=== PATIENT | male | born 1940 | race Caucasian/White ===

== ENCOUNTER → 2019-04-15 | Outpatient (CLI) | payer MEDICARE | END | disposition home or self-care (01) | LOC: LABWHC1 08:12 | PROVIDERS: ATTEND Internal Medicine | DX: R97.20 Elevated prostate specific antigen [PSA] (principal) | CPT/HCPCS: 36415; 84153 ==

== ENCOUNTER 2020-04-04 08:23 | Emergency (ER) | payer MEDICARE ==
[2020-04-04 08:32] VITALS: RESP 18
--- NOTE | 2020-04-04 08:59 | ED ---
General Adult HPI - General Chief complaint: Extremity Injury, Lower Stated complaint: Pain in right hip Time Seen by Provider: 04/04/20 08:41 Source: patient, RN notes reviewed Mode of arrival: ambulatory Limitations: no limitations - History of Present Illness Initial comments: This is an 79-year-old male presents emergency Department chief complaint of right leg pain. Patient has pain from his right buttocks, right hip region down towards his knee. Patient states started after raking some leaves earlier last week. Patient states that pain is worse after standing all day states it aches at nighttime. Patient denies any numbness or tingling denies any bowel, bladder incontinence or retention, denies any saddle anesthesia or lower extremity paresthesias. Patient has no associated weakness no decreased range of motion. Patient states he gets pain relief while laying flat and put in his legs up. - Related Data Previous Rx's Medication Instructions Recorded Ibuprofen [Motrin] 600 mg PO Q8HR PRN #20 tab 04/04/20 Orphenadrine [Norflex] 100 mg PO Q12H #10 tablet.er 04/04/20 predniSONE 50 mg PO DAILY #5 tab 04/04/20 Allergies Allergy/AdvReac Type Severity Reaction Status Date / Time aspirin AdvReac nose bleed Verified 04/04/20 09:36 Review of Systems ROS Statement: Those systems with pertinent positive or pertinent negative responses have been documented in the HPI. ROS Other: All systems not noted in ROS Statement are negative. Past Medical History Past Medical History: No Reported History History of Any Multi-Drug Resistant Organisms: None Reported Past Surgical History: Hernia Repair Past Psychological History: No Psychological Hx Reported Smoking Status: Former smoker Past Alcohol Use History: Daily General Exam Limitations: no limitations General appearance: alert, in no apparent distress Head exam: Present: atraumatic, normocephalic, normal inspection Eye exam: Present: normal appearance, PERRL, EOMI. Absent: scleral icterus, conjunctival injection, periorbital swelling Neck exam: Present: normal inspection, full ROM. Absent: tenderness, meningismus, lymphadenopathy Respiratory exam: Present: normal lung sounds bilaterally. Absent: respiratory distress, wheezes, rales, rhonchi, stridor Cardiovascular Exam: Present: regular rate, normal rhythm, normal heart sounds. Absent: systolic murmur, diastolic murmur, rubs, gallop, clicks Extremities exam: Present: other (Lower extremity pulses equal bilaterally neurovascular intact equal color equal warmth strength 5/5) Back exam: Present: full ROM. Absent: tenderness, paraspinal tenderness, verteb ral tenderness Neurological exam: Present: alert, oriented X3, CN II-XII intact Skin exam: Present: warm, dry, intact, normal color. Absent: rash Course Vital Signs 04/04/20 04/04/20 08:28 09:43 Temperature 97.9 F 97.8 F Pulse Rate 91 78 Respiratory 18 18 Rate Blood Pressure 187/121 164/110 O2 Sat by Pulse 99 97 Oximetry Medical Decision Making - Medical Decision Making X-ray reviewed shows degenerative changes, arthritic changes. Patient has no red flag symptoms she does have lumbar radiculopathy. Patient provided or steroids, pain control. Patient does have moderate hypertension he states that he goes his PCP on a regular basis has no issues with his blood pressure did recommend treating his blood pressure patient states that he thinks it's from the pain and will follow-up for recheck. Disposition Clinical Impression: Lumbar radiculopathy, acute Disposition: HOME SELF-CARE Condition: Stable Instructions (If sedation given, give patient instructions): Lumbar Radiculopathy (ED) Additional Instructions: Please return to the Emergency Department if symptoms worsen or any other concerns. Prescriptions: Ibuprofen [Motrin] 600 mg PO Q8HR PRN #20 tab PRN Reason: Pain Orphenadrine [Norflex] 100 mg PO Q12H #10 tablet.er predniSONE 50 mg PO DAILY #5 tab Is patient prescribed a controlled substance at d/c from ED?: No Referrals: Yvonne Blount MD [Primary Care Provider] - 1-2 days Time of Disposition: 09:46
--- NOTE | 2020-04-04 09:20 | XR ---
EXAMINATION TYPE: XR lumbosacral spine min 4V DATE OF EXAM: 04/04/2020 Comparison: None Clinical History: 79-year-old male pain, right radicular symptoms Findings: Dextroconvex scoliosis centered along the upper lumbar spine. 5 lumbar type vertebral bodies. Bulky e ndplate spondylosis is present throughout with scattered moderate multilevel degenerative disc diseas e. Facet arthropathy throughout. Vertebral body heights appear maintained and alignment is also prese rved. Impression: Degenerated dextroconvex scoliosis of the lumbar spine. Moderate multilevel degenerative disc disease with bulky endplate spondylosis. Facet arthropathy throughout.
[2020-04-04 09:44] VITALS: BP 164/110; PULSE 78; TEMP 97.8
[2020-04-04] MEDS ORDERED: ACET/COD 300 MG/30 MG STARTER PACK 6 TAB BTL PO STA (09:46)
== END 2020-04-04 09:59 | disposition home or self-care (01) ==
LOC: EC 08:23
DX: M47.26 Other spondylosis with radiculopathy, lumbar region (principal); I10 Essential (primary) hypertension; Z87.891 Personal history of nicotine dependence; Z88.6 Allergy status to analgesic agent
CPT/HCPCS: 72110; 99283

== ENCOUNTER → 2021-05-12 | Outpatient (CLI) | payer MEDICARE ==
--- NOTE | 2021-05-12 12:27 | XR ---
Right RIBS HISTORY: Pain 4 views the right ribs Bone mineralization is maintained. There is no evident fracture. Right lung as visualized is normal. Thoracic spondylosis is present. There is an underlying scoliosis seen in the thoracic lumbar spine. Right acromioclavicular joint shows arthropathy change. IMPRESSION: Scoliosis and degenerative disc disease. If occult injury is suspected within the ribs th en bone scan may be of benefit.
== END | disposition home or self-care (01) ==
LOC: RADXRMAIN 11:38
PROVIDERS: ATTEND Internal Medicine
DX: M41.85 Other forms of scoliosis, thoracolumbar region (principal); M51.35 Other intervertebral disc degeneration, thoracolumbar region

== ENCOUNTER → 2022-03-29 | Outpatient (CLI) | payer MEDICARE ==
--- NOTE | 2022-03-30 16:32 | MR ---
EXAMINATION TYPE: MR Prostate wo/w con DATE OF EXAM: 03/29/2022 11:09 AM COMPARISON: None. CLINICAL INDICATION:Male, 81 years old with history of C61 prostate ca; TECHNIQUE: Multi-planar, multi-sequence imaging of the pelvis is performed prior to and following the uncomplicated administration of bolus intravenous gadolinium. CONTRAST: 7.5 Gadavist Interpretive Criteria: PI-RADS v2.1 SERUM PSA: 19.1 on 02/24/2022 SURGICAL PATHOLOGY: Report dated 10/05/2020 Mendy score with prostatic adenocarcinoma including: Right lateral base 4+3 Right base 3+4 Left base 3+4 Left lateral apex 3+3 FINDINGS: Prostatic dimensions: 5.4 x 6.0 x 4.2 cm. Ellipsoid Volume:71.25 (PSA density=0.27 ng/mL/mL) CENTRAL GLAND (Central and Transition Zones/CZ+TZ): Multiple bilateral, heterogenous appearing hypertrophic stromal nodules, without suspicious lesion. M edian lobe hypertrophy with protrusion into the base of the bladder. (PI-RADS 2) PERIPHERAL ZONE (PZ): PIRADS 4 Lesion measuring by 1.4 x 0.8 cm in the left base/mid gland lateral peripheral zone, demonst rating high DWI and low ADC signal with associated low T2 signal. PIRADS 5 Lesion measuring 2.7 x 1.3 cm in the left mid gland/apex posterior peripheral zone demonstra ting high DWI and low ADC signal. This area does cross midline posteriorly and extends along the caps ule is 1.2 cm. No definitive extracapsular extension. Focus of intrinsic high T1 signal in the mid gland/apex of the right likely secondary to previous pro statitis or hemorrhage from prior biopsy. SEMINAL VESICLES (SV): Symmetric and unremarkable. PERIPROSTATIC TISSUES: Unremarkable. LYMPH NODES: No enlarged pelvic lymph node. Prominent left external iliac chain lymph node measuring up to 7 mm in short axis is present. REMAINING PELVIS: Bladder wall is within normal limits given distention. No abnormal free or organized intrapelvic fluid collection. No pathologic bowel dilation or mural thickening. Left lateral bladder diverticulum is present. Bilateral fat containing inguinal hernias. OSSEOUS STRUCTURES: No suspicious osseous abnormality. IMPRESSION: 1. PIRADS 5 Lesion measuring 2.7 x 1.3 cm in the left posterior peripheral zone mid gland/apex. 2. PIRADS 4 Lesion measuring 1.4 x 0.8 cm in the left lateral peripheral zone base/mid gland. 3. Moderate BPH, estimated gland volume 71 mL. 4. No suspicious osseous lesion. 5. Prominent left external iliac chain lymph node this can be further evaluated gallium-68 PSMA scan if clinically warranted. 6. Left lateral bladder diverticulum is present.
== END | disposition home or self-care (01) ==
LOC: RADMRIMAIN 09:02
PROVIDERS: ATTEND Urology
DX: C61 Malignant neoplasm of prostate (principal); N40.0 Benign prostatic hyperplasia without lower urinary tract symptoms; N32.3 Diverticulum of bladder; R59.0 Localized enlarged lymph nodes
CPT/HCPCS: 72197; A9585

== ENCOUNTER → 2022-04-22 | Outpatient (CLI) | payer MEDICARE ==
--- NOTE | 2022-04-22 10:13 | PE ---
EXAMINATION TYPE: PET CT fusion skull to thigh DATE OF EXAM: 04/22/2022 COMPARISON: NONE HISTORY: Prostate cancer and biopsy October 05, 2020. Recent abnormal MRI. TECHNIQUE: Following the intravenous administration of 5.75 mCi of gallium 68 PSMA, whole body image s are performed from the skull base to the midthigh. Images are reviewed on the computer in the sony nal, axial, and sagittal planes. Reconstructed rotating images are created on independent workstatio n and reviewed on the computer. A localization and attenuation correction CT is performed in conjun ction with the PET scan. SCAN: Initial Scan FINDINGS: SKULL BASE AND NECK: Normal physiologic uptake in the lacrimal along with the bilateral parotid and submandibular along with the oropharyngeal salivary glands. No suspicious radiotracer uptake. CHEST, MEDIASTINUM, AND HILAR REGION: No suspicious radiotracer uptake. ABDOMEN AND PELVIS: Diffuse liver and splenic along with renal uptake. Diffuse bowel uptake. No abnor mal uptake along the left iliac chain to correspond to area of concern noted on this study axial imag e 206 prominent elongated lymph node measuring subcentimeter in short axis. There is some abnormal hypermetabolic uptake posterior aspect of the prostate gland greater in the le ft versus right side. Max SUV is 5.74 on image 217 in the midline at mid zone level. No abnormal uptake in the abdomen or pelvis. OSSEOUS STRUCTURES: No abnormal focal uptake in osseous structures. OTHER CT: Mild calcified plaque bilateral carotid bulb level. Mild cardiomegaly is present. There is 4.4 cm thin-walled cyst exophytic from the upper pole left kidney. Left sided bladder divert iculum is redemonstrated. Enlarged prostate is again seen. Small fat-containing left inguinal hernia is redemonstrated. There is dextroconvex scoliosis centered in the upper lumbar spine with multilevel spurring in the th oracolumbar spine redemonstrated IMPRESSION: No abnormal uptake in the left pelvic lymph node. No suspicious uptake to suggest metasta tic disease.
== END | disposition home or self-care (01) ==
LOC: RADPETMAIN 07:47
PROVIDERS: ATTEND Radiology Radiation Oncology
DX: C61 Malignant neoplasm of prostate (principal)
CPT/HCPCS: 78815; A9596

== ENCOUNTER → 2022-08-25 | Outpatient (CLI) | payer MEDICARE | END | disposition home or self-care (01) | LOC: LABWHC1 08:15 | PROVIDERS: ATTEND Radiology Radiation Oncology | DX: C61 Malignant neoplasm of prostate (principal) | CPT/HCPCS: 36415; 84153 ==

== ENCOUNTER → 2023-05-03 | Outpatient (CLI) | payer MEDICARE | END | disposition home or self-care (01) | LOC: LABWHC1 11:55 | PROVIDERS: ATTEND Radiology Radiation Oncology | DX: C61 Malignant neoplasm of prostate (principal) | CPT/HCPCS: 36415; 84153 ==

== ENCOUNTER → 2023-05-23 | Outpatient (CLI) | payer MEDICARE ==
[2023-05-23 17:17] LABS: Appearance,Urine Clear (Clear); Bilirubin,Urine Negative (Negative); Blood,Urine Negative (Negative); Color,Urine Colorless; Glucose,Urine (UA) Negative (Negative); Ketones,Urine Negative (Negative); Leukocyte Esterase,Urine Negative (Negative); Nitrite,Urine Negative (Negative); PH, Urine 5.5 (5.0-8.0); Protein,Urine Negative (Negative); Urobilinogen,Urine <2.0 mg/dL (<2.0)
== END | disposition home or self-care (01) ==
LOC: LABWHC1 15:45
PROVIDERS: ATTEND Radiology Radiation Oncology
DX: C61 Malignant neoplasm of prostate (principal)
CPT/HCPCS: 81003

== ENCOUNTER → 2023-07-18 | Outpatient (CLI) | payer MEDICARE ==
--- NOTE | 2023-07-18 13:32 | US ---
EXAMINATION TYPE: US kidneys/renal and bladder DATE OF EXAM: 07/18/2023 COMPARISON: PET CT 04/22/2022 CLINICAL INDICATION: Male, 83 years old with history of N18.1 CHRONIC KIDNEY DISEASE, STAGE 1; CKD st age 1. EXAM MEASUREMENTS: Right Kidney: 10.8 x 5.9 x 5.5 cm Left Kidney: 12.3 x 4.7 x 4.9 cm Right Kidney: Anechoic area seen upper pole: 2.8 x 3.0 x 3.1 cm. -Hypoechoic area seen laterally at mid: 1.2 x 1.2 x 1.0 cm. Left Kidney: Complex area seen lower pole: 2.1 x 2.0 x 2.4 cm. 2 anechoic areas seen at the upper and lower pole. Larger anechoic area is at the upper pole: 5.3 x 4.0 x 4.5 cm. Bladder: Appears anechoic. Bilateral Jets seen: No, only right jet seen at this time. IMPRESSION: 1. Bilateral renal cysts. Some of which appear slightly complex. Complete evaluation with MRI renal mass protocol could be performed for evaluation if clinically warranted. 2. No evidence for obstructive uropathy.
== END | disposition home or self-care (01) ==
LOC: RADUSWWP 12:15
PROVIDERS: ATTEND Internal Medicine
DX: N28.1 Cyst of kidney, acquired (principal); N18.1 Chronic kidney disease, stage 1
CPT/HCPCS: 76770

== ENCOUNTER → 2023-08-16 | Outpatient (CLI) | payer MEDICARE ==
--- NOTE | 2023-08-16 12:19 | MR ---
EXAMINATION TYPE: MR abdomen wo/w con DATE OF EXAM: 08/16/2023 8:45 AM CLINICAL INDICATION:Male, 83 years old with history of N28.1 CYST OF KIDNEY, ACQUIRED; PHH, Hx of pro state cancer, cyst on kidney COMPARISON: PET/CT 04/22/2022 TECHNIQUE: Multiplanar multi-sequence imaging was performed without contrast. Post contrast imaging was performed. Post IV contrast subtraction images were also submitted for review. IV Contrast: 7.5 cc Gadavist FINDINGS: LOWER CHEST: No gross irregularity. ABDOMEN Liver: No evidence for cirrhosis. Signal dropout on chemical shift out of phase imaging. Gallbladder and Bile ducts: No evidence for ductal dilation, or biliary stricture or evidence of chol edocholithiasis. The gallbladder is within normal limits. Pancreas: No ductal dilation. No evidence for solid mass. Spleen: Normal for size. Adrenal glands: Unremarkable. Kidneys: High T2 signal renal cysts bilaterally measuring up to 29 mm on the right and 51 mm on the l eft. A more complex renal cyst in the left kidney with thin septations measures up to 23 mm. These cy sts do not have abnormal postcontrast enhancement. No solid suspicious renal mass. There is a couple have intrinsic T1 signal foci present on noncontrast T1-weighted imaging possibly representing tiny h emorrhagic/proteinaceous cyst. No evidence for obstructive uropathy. No suspicious renal masses. Stomach and Bowel: No evidence for bowel wall thickening or evidence for obstruction. Retroperitoneum/Peritoneum: No evidence of pneumoperitoneum or free fluid. Vasculature: No aortic aneurysm. Musculoskeletal: The osseous structures appear intact. Lymph Nodes: No gross evidence for lymphadenopathy. Abdominal wall: Unremarkable. IMPRESSION: 1. Bilateral Bosniak type I and type II equivalent renal cysts. 2. Hepatic steatosis. 3. No evidence for lymphadenopathy.
== END | disposition home or self-care (01) ==
LOC: RADMRIMAIN 07:57
PROVIDERS: ATTEND Internal Medicine
DX: N28.1 Cyst of kidney, acquired (principal); K76.0 Fatty (change of) liver, not elsewhere classified
CPT/HCPCS: 74183; A9585

== ENCOUNTER → 2023-11-08 | Outpatient (CLI) | payer MEDICARE | END | disposition home or self-care (01) | LOC: LABWHC1 09:11 | PROVIDERS: ATTEND Radiology Radiation Oncology | DX: C61 Malignant neoplasm of prostate (principal) | CPT/HCPCS: 36415; 84153 ==

== ENCOUNTER → 2024-05-20 | Outpatient (CLI) | payer MEDICARE | END | disposition home or self-care (01) | LOC: LABWHC1 10:25 | PROVIDERS: ATTEND Radiology Radiation Oncology | DX: C61 Malignant neoplasm of prostate (principal) | CPT/HCPCS: 36415; 84153 ==

== ENCOUNTER → 2024-11-26 | Outpatient (CLI) | payer MEDICARE | END | disposition home or self-care (01) | LOC: LABWHC1 10:52 | PROVIDERS: ATTEND Radiology Radiation Oncology | DX: C61 Malignant neoplasm of prostate (principal) | CPT/HCPCS: 36415; 84153 ==